=== PATIENT | male | born 2005 | race Caucasian/White ===

== ENCOUNTER 2024-09-24 14:16 | Emergency (ER) | payer OTHER ==
[~2024-09-24] VITALS: Ht 175.3 cm; Wt 69.9 kg
[2024-09-24 14:23] VITALS: TEMP 98.4
--- NOTE | 2024-09-24 16:31 | Physician Documentation ---
History of Present Illness ~ Chief Complaint: Mental Health Eval Stated Complaint: MH EVAL Time Seen by MD: 16:30 OK to notify your PCP?: Yes Source: patient Mode of Arrival: POV, Ambulatory Exam Limitations: no limitations HPI 19 year old male, with history of schizophrenia and bipolar disorders but not on any medications, brought to the ED by his cousin due to concerns of insomnia and rapid thoughts for the last couple months, worsening recently. Patient repeatedly expresses resistance to taking medications and states, I would like to do my own research, "I want to do the holistic thing," and that he would like to speak to a therapist. Patient was seen at [facility] in th e last two days for the same concerns, and was "moved to the second floor," however it seems he left AMA or eloped because "there were no windows and I needed vitamin C to stay healthy." He admits he refused medications at this time as well. Family state they were recommended to visit an ER in [place] as they might find more resources. Family reports that patient had a similar episode approximately four years ago and 6-7 years ago. He denies any drug use other than marijuana on 09/08/24 and 09/13/24 "for a spiritual journey." He makes additional statements such as, "I talk about escaping the Matrix," "I analyze societal patterns," and "I am a very self-aware individual." He denies any suicidal ideation, homicidal ideation, or hallucinations. Medication Reconciliation Allergies: Coded Allergies: No Known Allergies (Unverified , 09/24/24) Scheduled Quetiapine Fumarate (Seroquel), 1 TAB PO HS Review of Systems All Other Systems at this time: Reviewed and Negative ROS As stated above in the HPI, otherwise all systems are reviewed and negative. Physical Exam Vital Signs: RN Vital Signs have been reviewed: Yes, Temperature: 98.4, Heart Rate: 85, Respiratory Rate: 16, BP: 122/87, Pulse Oximetry: 100, Weight: 69.900 Pulse Oximetry Reflects: adequate oxygenation Physical Exam General: The patient is well developed, well nourished, nontoxic appearing and is in no acute distress. Skin: [place], warm and dry with no rashes. HEENT: Head was normocephalic and atraumatic. Chest: Clear to auscultation bilaterally without wheezes, rales or rhonchi. No accessory muscle use. No dullness to percussion. Heart: Rate regular and rhythmic. S1, S2. No murmurs. Palpation of the chest wall was normal. No rubs or thrills. Abdomen: Soft, nontender and nondistended. Positive bowel sounds. No guarding or rebound. Extremities: No cyanosis, clubbing or edema. The patient moves all extremities. Pulses were equal and symmetric. Neurologic: Motor and sensation grossly intact. Cranial nerves II-XII grossly intact. A & O x4. Psychologic: Rapid disorganized thoughts. Anxious. No suicidal or homicidal ideation. Progress Results/Orders Reviewed/noted all lab results: Yes Results/Orders Completed Orders - JEREMIAH RUTLEDGE MD Quetiapine Fumarate Tablet (Seroquel) (09/24/24 21:00) Quetiapine Tablet (Seroquel Tablet) (09/24/24 17:04) Quetiapine Tablet (Seroquel Tablet) (09/24/24 21:00) Medications Received in ER Medications (Trade) Dose Ordered Sig/Celeste Route PRN Reason Start Time Stop Time Status Last Admin Dose Admin (SEROquel tablet) 25 mg ONCE STAT PO 09/24/24 17:04 09/24/24 17:06 DC 09/24/24 17:41 25 MG Vital Signs 09/24/24 09/24/24 09/24/24 14:23 15:24 17:41 Temp 98.4 Pulse 85 89 Resp 18 16 16 B/P (MAP) 122/87 120/88 Pulse Ox 100 100 Re-Evaluation Re-Evaluation : Re-Evaluation: Improved Progress Patient's speech was a bit pressured. Patient agreed to take Seroquel so he could sleep and hopefully that will help him improve a bit. Unfortunately the patient does need to see a psychiatrist but we do not have psychiatrist on staff. Patient is not suicidal or danger to self. [place] who was told that we have more resources and [facility] so the family's here for evaluation. Unfortunately patient does not meet acute psychiatric hold. Patient should follow up with local resources and unfortunately he has been seen by psychiatrist in the past but disagrees with their plan of medication. Patient was given prescription of Seroquel and discharged home. Medical Decision Making Additional info obtained from: old records Differential Dx:Considerations: Include: Alcohol abuse, Anxiety, Bipolar disorder, Conversion disorder, Depression, Encephaloathy, Homicidal, Panic disorder, Personality disorder, Substance abuse, Suicidal, Other Departure Time of Disposition: 17:06 Disposition: 01 HOME / SELF CARE / HOMELESS Impression: Primary Impression: Schizophrenia Qualified Codes: F20.9 - Schizophrenia, unspecified Additional Impression: Insomnia Qualified Codes: G47.00 - Insomnia, unspecified Condition: Stable Discharge Instructions: Insomnia Additional Instructions: Take Seroquel as prescribed. Tried to sleep as best as you can. Follow up with outpatient mental health resources, such as Psychiatry. Return to the ER for thoughts of harming yourself, thoughts of harming others, or any other concerns. Prescriptions Quetiapine Fumarate (SEROQUEL) 25 Mg Tablet 1 TAB PO HS for 30 Days, #30 TAB 1 Refill Prov: JEREMIAH RUTLEDGE MD 09/24/24 Education Educated: Patient, Family Educated regarding: diagnosis, treatment, need for follow up Additional Comment Patient and family given resources on mental health options in [facility]. Signature Scribe Signature: Scribed for Jeremiah Rutledge MD by Jayson Guan . 09/24/24 17:03 Attestation: The note accurately reflects work and decisions made by me.Jeremiah Rutledge MD 09/24/24 16:31 JEREMIAH RUTLEDGE MD Sep 24, 2024 16:31 JAYSON RAMSEY Sep 24, 2024 17:08
[2024-09-24] MEDS ORDERED: QUET25TA PO (16:56)
[2024-09-24] MEDS: quetiapine 100mg tablet PO SCH (17:06)
[2024-09-24] MEDS: QUEtiapine 25mg tablet PO SCH (17:40)
[2024-09-24 17:41] VITALS: BP 120/88; PULSE 89; RESP 16; O2SAT 100
[2024-09-24] MEDS: QUEtiapine 25mg tablet PO STA (17:41)
== END 2024-09-24 17:46 | disposition home or self-care (01) ==
LOC: ER 14:18
DX: G47.00 Insomnia, unspecified (principal); F20.9 Schizophrenia, unspecified; F31.9 Bipolar disorder, unspecified
CPT/HCPCS: 99283